=== PATIENT | female | born 1960 | race Caucasian/White ===

== ENCOUNTER 2017-09-11 10:08 | Emergency (ER) | payer OTHER ==
[~2017-09-11] VITALS: Ht 160 cm; Wt 78.0 kg
[~2017-09-11 10:08] MED LIST: ATOR40TA PO; Aspir 8181 MG; B Complete1 EACH PO; CAYENNE PO; CETI5; CHOL10002 PO; Crestor40 MG PO; DOXY100 PO; ESCI20 PO; Echinacea80 MG; GARLIC PO; LIPITOR; MAGCHL64ER; PANT20 PO; PLAVIX; PRAV20; PROTONIX; TOCO400; UBID10 PO; Vitamin C100 M1; [UNRECOGNIZED DRUG - OTHER] PO; [UNRECOGNIZED DRUG - OTHER] PO; [UNRECOGNIZED DRUG - OTHER] PO
[2017-09-11] MEDS ORDERED: LOSA50 PO (11:03)
[2017-09-11] MEDS ORDERED: Ranitidine HCl300 MG PO (11:03)
[2017-09-11] MEDS ORDERED: Pantoprazole So40 MG PO (11:04)
[2017-09-11] MEDS ORDERED: MONT10T PO (11:04)
[2017-09-11] MEDS ORDERED: VARE1 PO (11:04)
[2017-09-11] MEDS ORDERED: HYDCHL25 PO (11:05)
[2017-09-11] MEDS ORDERED: Norco 5-325 Ta1 EACH PO (11:25)
[2017-09-11] MEDS ORDERED: Amoxicillin875 MG PO (11:25)
== END 2017-09-11 11:38 | disposition home or self-care (01) ==
LOC: ER 10:08
DX: K04.7 Periapical abscess without sinus (principal); Z88.5 Allergy status to narcotic agent; Z88.8 Allergy status to other drugs, medicaments and biological substances; Z88.2 Allergy status to sulfonamides; Z91.010 Allergy to peanuts; Z79.82 Long term (current) use of aspirin; Z79.899 Other long term (current) drug therapy; E78.5 Hyperlipidemia, unspecified; Z86.73 Personal history of transient ischemic attack (TIA), and cerebral infarction without residual deficits; F17.210 Nicotine dependence, cigarettes, uncomplicated
CPT/HCPCS: 99283

== ENCOUNTER → 2019-03-05 | Outpatient (CLI) | payer OTHER ==
[~2019-03-05] MED LIST changes: +Amoxicillin875 MG PO; +HYDCHL25 PO; +LOSA50 PO; +MONT10T PO; +Norco 5-325 Ta1 EACH PO; +Pantoprazole So40 MG PO; +Ranitidine HCl300 MG PO; +VARE1 PO
== END ==
LOC: LAB SHORT 19:22 → LAB 19:22
PROVIDERS: Nurse Practitioner Family
DX: Z01.419 Encounter for gynecological examination (general) (routine) without abnormal findings (principal)
CPT/HCPCS: G0145

== ENCOUNTER → 2019-06-13 | Outpatient (CLI) | payer OTHER | END | disposition home or self-care (01) | LOC: LAB EV 16:51 → LAB SHORT 16:51 | DX: I73.9 Peripheral vascular disease, unspecified (principal) | CPT/HCPCS: 84484 ==

== ENCOUNTER 2019-10-18 08:27 | Day surgery (SDC) | payer OTHER ==
[~2019-10-18] VITALS: Ht 157.5 cm; Wt 89.3 kg
[2019-10-18] MEDS ORDERED: PLAVIX75 MG PO (09:00)
[2019-10-18] MEDS ORDERED: ASPI81CH PO (09:02)
[2019-10-18] MEDS ORDERED: Cymbalta20 MG PO (09:04)
--- NOTE | 2019-10-18 11:16 | NUR ---
10/18/19 1116 Colleen Renteria PT UP IN CHAIR AT 1107, O2 AT 88% ENCOURAGED TO TAKE DEEP BREATHS, O2 INCREASED TO 98% AND MAINTAING AT THAT RATE. TMG
== END 2019-10-18 12:40 | disposition home or self-care (01) ==
LOC: ORSCSDS 08:27
PROVIDERS: Orthopaedic Surgery
PROC: 0LBL0ZZ Excision of Right Upper Leg Tendon, Open Approach (ICD-10-PCS; principal; 2019-10-18 09:45)
PROC: 0YH Anatomical Regions, Lower Extremities, Insertion (ICD-10-PCS; principal; 2019-10-18 09:45)
DX: M67.853 Other specified disorders of tendon, right hip (principal); I10 Essential (primary) hypertension; E11.9 Type 2 diabetes mellitus without complications; K21.9 Gastro-esophageal reflux disease without esophagitis; J44.9 Chronic obstructive pulmonary disease, unspecified; Z87.891 Personal history of nicotine dependence; I25.10 Atherosclerotic heart disease of native coronary artery without angina pectoris; Z86.73 Personal history of transient ischemic attack (TIA), and cerebral infarction without residual deficits; E66.01 Morbid (severe) obesity due to excess calories; Z68.36 Body mass index [BMI] 36.0-36.9, adult; Z79.01 Long term (current) use of anticoagulants; Z79.84 Long term (current) use of oral hypoglycemic drugs; Z79.82 Long term (current) use of aspirin
CPT/HCPCS: 82947; A9270-GY; C1713; J0171; J0690; J1100; J1885; J2250; J2370; J2405; J2704; J2710; J2765; J3010; J7120

== ENCOUNTER 2020-01-29 18:33 | Emergency (ER) | payer OTHER ==
[~2020-01-29 18:33] MED LIST changes: +ASPI81CH PO; +Cymbalta20 MG PO; +PLAVIX75 MG PO
== END 2020-01-29 19:48 | disposition left against medical advice (07) ==
LOC: ER 18:33
DX: Z53.21 Procedure and treatment not carried out due to patient leaving prior to being seen by health care provider (principal)

== ENCOUNTER 2020-05-23 10:12 | Observation (INO) | payer OTHER ==
[~2020-05-23] VITALS: Ht 160 cm; Wt 84.2 kg
[~2020-05-23 10:12] MED LIST changes: -Crestor40 MG PO; -Cymbalta20 MG PO; -HYDCHL25 PO; -LOSA50 PO; -PLAVIX75 MG PO; -Pantoprazole So40 MG PO; -VARE1 PO
[2020-05-23 10:42] LABS: BASOPHILS ABSOLUTE AUTO 0.02 K/mm3 (0.00-0.23); BASOPHILS PERCENT AUTO 0 % (0-2); EOSINOPHILS ABSOLUTE AUTO 0.16 K/mm3 (0.00-0.68); EOSINOPHILS PERCENT AUTO 3 % (0-6); Hemoglobin 12.8 g/dL (11.5-16.0); IMMATURE GRAN ABSOLUTE AUTO 0.02 K/mm3 (0.00-0.10); IMMATURE GRAN PERCENT AUTO 0 % (0-1); LYMPHOCYTES ABSOLUTE AUTO 2.39 K/mm3 (0.84-5.20); LYMPHOCYTES PERCENT AUTO 38 % (21-46); MONOCYTES ABSOLUTE AUTO 0.47 K/mm3 (0.16-1.47); MONOCYTES PERCENT AUTO 7 % (4-13); Mean Corpuscular HGB 28.8 pg (26.0-34.0); Mean Corpuscular HGB Conc 32.8 g/dL (31.5-36.5); Mean Corpuscular Volume 88 fL (80-100); Mean Platelet Volume 11.2 fL (9.1-12.4); NEUTROPHILS ABSOLUTE AUTO 3.29 K/mm3 (1.96-9.15); NEUTROPHILS PERCENT AUTO 52 % (41-73); Platelet Count 232 K/mm3 (150-400); RDW Coefficient Variation 13.6 % (11.7-14.2); RDW Standard Deviation 43.8 fL (35.1-46.3); Red Blood Cell Count 4.45 M/mm3 (3.80-5.20); White Blood Cell Count 6.35 K/mm3 (4.00-11.30)
[2020-05-23 10:55] LABS: Alanine Aminotransfer (ALT/SGP 54 U/L (12-78); Albumin, Blood 3.7 g/dL (3.4-5.0); Alk Phos 124 U/L (50-136); Anion Gap 9 mmol/L (6-16); Aspartate Aminotrans (AST/SGOT 62 U/L (12-37); Bilirubin, Total 0.5 mg/dL (0.1-1.0); Blood Urea Nitrogen 17 mg/dL (8-24); Bun/Creatinine Ratio 25.8 (12.0-20.0); CO2, Blood 22 mmol/L (21-32); Calcium, Blood 9.2 mg/dL (8.5-10.1); Chloride, Blood 107 mmol/L (98-108); Creatinine, Blood 0.66 mg/dL (0.40-1.00); Globulin, Blood 3.7 g/dL (2.2-4.0); Glomerular Filtration Rate >60 (60-); Glucose, Blood 152 mg/dL (70-99); Potassium, Blood 3.5 mmol/L (3.5-5.5); Sodium, Blood 138 mmol/L (136-145); Total Protein, Blood 7.4 g/dL (6.4-8.2); Troponin I <0.015 ng/mL (0.000-0.040)
[2020-05-23 13:37] LABS: Source, Urine Voided
[2020-05-23 13:40] LABS: Appearance, Urine Clear (Clear); Bilirubin, Urine Neg (Neg); Blood, Urine Neg (Neg); Color, Urine Yellow (P-Yellow); Glucose Qualitative, Urine Neg (Neg); Ketones, Urine Neg (Neg); Leukocyte Esterase, Urine Neg (Neg); Nitrite, Urine Neg (Neg); Protein, Urine 1+ (Neg); Urobilinogen, Urine 1+ (Normal)
[2020-05-23] MEDS ORDERED: Chantix1 MG PO (14:36)
[2020-05-23] MEDS ORDERED: AMLO5 PO (14:37)
[2020-05-23] MEDS ORDERED: FAMO40 PO (14:38)
[2020-05-23] MEDS ORDERED: MONT10T PO (14:38)
[2020-05-23] MEDS ORDERED: HYDCHL25 PO (14:39)
[2020-05-23] MEDS ORDERED: Pantoprazole So40 MG PO (14:39)
[2020-05-23] MEDS ORDERED: METF500C PO (14:40)
[2020-05-23] MEDS ORDERED: Cymbalta20 MG PO (14:40)
[2020-05-23] MEDS ORDERED: Crestor40 MG PO (14:40)
[2020-05-23] MEDS ORDERED: LOSARTAN POTAS100 M1 PO (14:41)
[2020-05-23] MEDS ORDERED: PLAVIX75 MG PO (14:41)
[2020-05-23] MEDS ORDERED: ZYRTEC10 M2 PO (15:00)
[2020-05-23] MEDS ORDERED: MAGNESIUM OXIDE TAB PO (15:09)
--- NOTE | 2020-05-23 17:45 | NUR ---
PT ARRIVED TO UNIT FROM ER VIA [facility] TRASFERED SELF TO BED WITH NO WEAKENSS. PT CURRENTLY REPORTS NO PAIN AND NO NAUSEA. CLEAR LIQUID DIET PER ORDERS. PLAN IS FOR NPO AT MIDNIGHT FOR PROCEDURE TOMORROW. REPORTS PAIN LOCALIZED IN THE EPIGASTRIC AREA. CALL LIGHT IN REACH, PT EDUCATED ON USE. [id number] AT THIS TIME.
[2020-05-24 04:58] LABS: BASOPHILS ABSOLUTE AUTO 0.04 K/mm3 (0.00-0.23); BASOPHILS PERCENT AUTO 1 % (0-2); EOSINOPHILS ABSOLUTE AUTO 0.23 K/mm3 (0.00-0.68); EOSINOPHILS PERCENT AUTO 3 % (0-6); Hematocrit 38.5 % (33.0-51.0); Hemoglobin 12.3 g/dL (11.5-16.0); IMMATURE GRAN ABSOLUTE AUTO 0.01 K/mm3 (0.00-0.10); IMMATURE GRAN PERCENT AUTO 0 % (0-1); LYMPHOCYTES ABSOLUTE AUTO 1.65 K/mm3 (0.84-5.20); LYMPHOCYTES PERCENT AUTO 22 % (21-46); MONOCYTES PERCENT AUTO 9 % (4-13); Mean Corpuscular HGB Conc 31.9 g/dL (31.5-36.5); Mean Corpuscular Volume 88 fL (80-100); Mean Platelet Volume 11.2 fL (9.1-12.4); NEUTROPHILS ABSOLUTE AUTO 4.87 K/mm3 (1.96-9.15); NEUTROPHILS PERCENT AUTO 65 % (41-73); Platelet Count 222 K/mm3 (150-400); RDW Coefficient Variation 13.9 % (11.7-14.2)
--- NOTE | 2020-05-24 05:14 | NUR ---
SHIFT SUMMARY: JACE IS A&OX4. VSS, NO ACUTE EVENTS OVERNIGHT. DR. RICH CONTACTED REGARDING PLAVIX AND COVID SWAB. NO ORDER GIVEN AT THIS TIME FOR COVID SWAB D/T PATIENT HAVING TAKEN PLAVIX 05/22/20 AT BEDTIME WHICH SHE TAKES FOR THE HX OF BILATERAL ILIAC STENT PLACEMENT. PT IS INDEPENDENT IN THE ROOM. SHE DID REPORT SOME DIARRHEA WHICH SHE STATES HAS IMPROVED THIS MORNING. SHE WAS MADE NPO AT MIDNIGHT, BUT WAS TOLERATING CLEARS WELL UNTIL THAT TIME. SHE HAS DENIED THE NEED FOR PAIN MEDICATION. SHE USES HER CALL LIGHT APPROPRIATELY. SHE IS LYING IN BED WITH HER CALL LIGHT IN REACH. WILL REPORT TO DAY SHIFT RN.
[2020-05-24 05:24] LABS: Alanine Aminotransfer (ALT/SGP 255 U/L (12-78); Albumin, Blood 3.4 g/dL (3.4-5.0); Alk Phos 136 U/L (50-136); Anion Gap 5 mmol/L (6-16); Aspartate Aminotrans (AST/SGOT 202 U/L (12-37); Bilirubin, Total 0.8 mg/dL (0.1-1.0); Blood Urea Nitrogen 11 mg/dL (8-24); Bun/Creatinine Ratio 18.2 (12.0-20.0); CO2, Blood 28 mmol/L (21-32); Calcium, Blood 8.9 mg/dL (8.5-10.1); Chloride, Blood 106 mmol/L (98-108); Creatinine, Blood 0.61 mg/dL (0.40-1.00); Globulin, Blood 3.4 g/dL (2.2-4.0); Glomerular Filtration Rate >60 (60-); Glucose, Blood 125 mg/dL (70-99); Magnesium, Blood 2.2 mg/dL (1.6-2.4); Potassium, Blood 4.1 mmol/L (3.5-5.5); Sodium, Blood 139 mmol/L (136-145); Total Protein, Blood 6.8 g/dL (6.4-8.2); Troponin I <0.015 ng/mL (0.000-0.040)
--- NOTE | 2020-05-24 14:35 | NUR ---
DISCHARGE PT LEFT VIA WHEELCHAIR WITH . DENIES PAIN AND NAUSEA ALL DAY. PLAN IS FOR PATIENT TO FOLLOW UP WITH DR RICH OUTPATIENT FOR ERIN. IV WAS REMOVED DISCHARGE INFORMATION GONE OVER WITH PATIENT SHE DENIES ANY FURTHER NEEDS AT THSI TIME. ALL BELONGINGS SENT WITH PT.
[2020-08-11] MEDS ORDERED: THERA-D2000 UNIT PO (14:26)
[2020-08-11] MEDS ORDERED: Aspir 8181 MG PO (14:26)
[2020-08-11] MEDS ORDERED: COENZYME Q10100 MG PO (14:27)
== END 2020-05-24 14:08 | disposition home or self-care (01) ==
LOC: ER 10:12 → ERHOLD 10:13 → SURS 14:44 → ERHOLD 14:44 → ER 14:44 → SURS 16:49 → ERHOLD 16:49 → ER 05-24 10:13 → SURS 05-24 10:13 → ERHOLD 05-24 10:13 → SURS 05-24 13:37
PROVIDERS: Emergency Medicine; ADMIT Internal Medicine Gastroenterology
DX: K80.20 Calculus of gallbladder without cholecystitis without obstruction (principal); R07.9 Chest pain, unspecified; J43.9 Emphysema, unspecified; I10 Essential (primary) hypertension; E78.5 Hyperlipidemia, unspecified; F32.9 Major depressive disorder, single episode, unspecified; E11.9 Type 2 diabetes mellitus without complications; K21.9 Gastro-esophageal reflux disease without esophagitis; I73.9 Peripheral vascular disease, unspecified; J45.909 Unspecified asthma, uncomplicated; Z88.5 Allergy status to narcotic agent; Z88.2 Allergy status to sulfonamides; Z88.1 Allergy status to other antibiotic agents; Z91.010 Allergy to peanuts; Z87.891 Personal history of nicotine dependence
CPT/HCPCS: 36415; 71045; 71260; 76705; 80053; 82947; 83690; 83735; 83880; 84484; 85025; 85379; 93005; 93010; 94760; 99285-25; A9270; Q9967

== ENCOUNTER 2020-06-02 07:21 | Day surgery (SDC) | payer OTHER ==
[~2020-06-02] VITALS: Ht 160 cm; Wt 84.9 kg
[~2020-06-02 07:21] MED LIST changes: +AMLO5 PO; +Chantix1 MG PO; +Crestor40 MG PO; +Cymbalta20 MG PO; +FAMO40 PO; +HYDCHL25 PO; +LOSARTAN POTAS100 M1 PO; +MAGNESIUM OXIDE TAB PO; +METF500C PO; +PLAVIX75 MG PO; +Pantoprazole So40 MG PO; +ZYRTEC10 M2 PO
--- NOTE | 2020-06-02 08:32 | NUR ---
IV ACCESS X2 ATTEMPTS NANCY SANDHU, IV ACCESS X2 1 UNSUCCESSUL AND 1 SUCCESSFUL. Ambulatory in Day Surgery History, Chart, Medications and Allergies reviewed before start of procedure.Patient confirms NPO status and agrees with scheduled surgery. Patient reports completing Chlorhexadine shower X2 prior to admission to hospital.Surgical site prepped with 2% Chlorhexidine cloth wipe. Lungs clear T/O to Auscultation. Patient States Post-Procedure ride home has been arranged WITH
--- NOTE | 2020-06-02 11:26 | NUR ---
REPORT FROM HEATH LOW RN. GAVE PT FOOD AND FLUIDS, MICHELLE WELL, GAVE ONE PAIN PILL. Dressing to procedure site clean, dry, intact with no visible drainage, swelling, erythema or bruising noted.
--- NOTE | 2020-06-02 12:21 | NUR ---
Patient up to Ambulate independently. Gait steady. PT WALKED TO BATHROOM. Discharge instructions reviewed with patient. Patient verbalizes understanding. Copy given to patient to take home. Dressing to procedure site clean, dry, intact with no visible drainage, swelling, erythema or bruising noted. Patient States Post-Procedure ride home has been arranged. Discharged via wheelchair to private car for ride home. ALL BELONGINGS RETURNED TO PATIENT. DR RICH AWARE THAT PT NEEDS PAIN MEDS. PT DOES NOT WANT TO WAIT FOR SCRIPT,BUT WILL SEND FAMILY BY TO CLINICAL UNIT COORDINATOR SCRIPT IF WRITTEN.
--- NOTE | 2020-06-02 12:47 | NUR ---
DR RICH WROTE SCRIPT FOR PATIENT PRIOR TO BEING DISCHARGED.
[2020-08-11] MEDS ORDERED: THERA-D2000 UNIT PO (14:26)
[2020-08-11] MEDS ORDERED: Aspir 8181 MG PO (14:26)
[2020-08-11] MEDS ORDERED: COENZYME Q10100 MG PO (14:27)
== END 2020-06-02 12:49 | disposition home or self-care (01) ==
LOC: ORSCMMR 07:21 → ORD 08:30 → ORSCMMR 12:49
PROVIDERS: Surgery
PROC: 0FT44ZZ Resection of Gallbladder, Percutaneous Endoscopic Approach (ICD-10-PCS; principal; 2020-06-02 08:30)
PROC: BF031ZZ Plain Radiography of Gallbladder and Bile Ducts using Low Osmolar Contrast (ICD-10-PCS; principal; 2020-06-02 08:30)
DX: K80.10 Calculus of gallbladder with chronic cholecystitis without obstruction (principal); I10 Essential (primary) hypertension; I25.10 Atherosclerotic heart disease of native coronary artery without angina pectoris; J44.9 Chronic obstructive pulmonary disease, unspecified; K21.9 Gastro-esophageal reflux disease without esophagitis; Z87.891 Personal history of nicotine dependence; E11.9 Type 2 diabetes mellitus without complications; Z86.73 Personal history of transient ischemic attack (TIA), and cerebral infarction without residual deficits; Z79.01 Long term (current) use of anticoagulants; Z79.899 Other long term (current) drug therapy
CPT/HCPCS: 74300; 82947; 88304; A9270; C1729; J0690; J1100; J1885; J2250; J2370; J2405; J2704; J2765; J3010; J7030; J7120

== ENCOUNTER 2020-08-12 08:50 | Day surgery (SDC) | payer OTHER ==
[~2020-08-12] VITALS: Ht 160 cm; Wt 86.2 kg
[~2020-08-12 08:50] MED LIST changes: +Aspir 8181 MG PO; +COENZYME Q10100 MG PO; +THERA-D2000 UNIT PO
[2020-08-12] MEDS ORDERED: MAGNESIUM OXID500 MG PO (09:24)
--- NOTE | 2020-08-12 12:40 | NUR ---
1210 PATIENT RETURNED FROM THE [facility]ATH[facility] WITH RIGHT GGROIN ANGIOSEAL WITH DRESSING IN PLACE. NO HEMATOMA, NO BLEEDING NOTED. PEDAL PULSES ASSESSED. MONITOR APPLIED AND CALL LIGHT IN REACH. VVS. C/O LOW BACK PAIN AND IMFORMED PATIENT SHE COULD BEND THE LEFT LEG TO RELEIVE THE LOW BACK PAIN. REPOSTIONED FOR COMFORT. CONTINUE TO MONITOR. LUNCH TRAY AT THE BEDSIDE BUT PATIENT STILL SLEEPY.
--- NOTE | 2020-08-12 14:10 | NUR ---
PT UP TO BATHROOM. GROIN AND PEDAL SITES BOTH STABLE. GETTING DRESSED AT THIS TIME.
--- NOTE | 2020-08-12 14:19 | NUR ---
DISCHARGE INSTRUCTIONS REVIEWED WITH PT, PT VERBALIZES UNDERSTANDING OF INSTRUCTIONS. SALINE LOCK REMOVED WITH CATHETER INTACT. GROIN AND PEDAL SITES STABLE. PT TO PRIVATE VEHICLE WITH DISCHARGE VOLUNTEER.
== END 2020-08-12 14:20 | disposition home or self-care (01) ==
LOC: MHTC 08:50
DX: E11.51 Type 2 diabetes mellitus with diabetic peripheral angiopathy without gangrene (principal); I70.213 Atherosclerosis of native arteries of extremities with intermittent claudication, bilateral legs; E11.69 Type 2 diabetes mellitus with other specified complication; I10 Essential (primary) hypertension; I65.23 Occlusion and stenosis of bilateral carotid arteries; E78.5 Hyperlipidemia, unspecified; J44.9 Chronic obstructive pulmonary disease, unspecified; Z87.891 Personal history of nicotine dependence; Z88.2 Allergy status to sulfonamides; Z88.8 Allergy status to other drugs, medicaments and biological substances; Z88.5 Allergy status to narcotic agent; Z91.010 Allergy to peanuts; Z79.84 Long term (current) use of oral hypoglycemic drugs
CPT/HCPCS: 37221; 37222; 37227; 75625; 75716; 76937; 99152; 99153; C1714; C1725; C1760; C1769; C1874; C1876; C1887; C1894; C2623; J1644; J2250; J3010; J7030; J7050; Q9967

== ENCOUNTER 2021-10-26 08:31 | Day surgery (SDC) | payer OTHER ==
[~2021-10-26] VITALS: Ht 157.5 cm; Wt 90.0 kg
[~2021-10-26 08:31] MED LIST changes: +MAGNESIUM OXID500 MG PO
--- NOTE | 2021-10-26 13:33 | NUR ---
PT RESTING COMFORTABLY. NADN. VSS. PT R FEMORAL SITE REMAINS CLEAR. NO BLEEDING OR HEMATOMA NOTED. VSS. CALL LIGHT WITHIN REACH.
--- NOTE | 2021-10-26 14:03 | NUR ---
PT AMBULATES TO RESTROOM AND BACK WITHOUT DIFF. R FEMORAL SITE REMAINS CLEAR AND STABLE. PT VERBALIZES UNDERSTANDING WRITTEN AND VERBAL INSTRCTIONS. DENIES QUESTIONS OR CONCERNS.
--- NOTE | 2021-10-26 14:13 | NUR ---
PT IV DC'D. CATH INTACT. PRESSURE DSG IN PLACE. NO BLEEDING OR HEMATOMA NOTED AT R FEMORAL SITE. VSS. NADN. PT DC TO HOME VIA WC BY S/O
== END 2021-10-26 14:10 | disposition home or self-care (01) ==
LOC: MHTC 08:31
DX: E11.51 Type 2 diabetes mellitus with diabetic peripheral angiopathy without gangrene (principal); I70.213 Atherosclerosis of native arteries of extremities with intermittent claudication, bilateral legs; J44.9 Chronic obstructive pulmonary disease, unspecified; I10 Essential (primary) hypertension; E78.5 Hyperlipidemia, unspecified; Z87.891 Personal history of nicotine dependence; Z88.5 Allergy status to narcotic agent; Z88.2 Allergy status to sulfonamides; Z79.82 Long term (current) use of aspirin; Z79.899 Other long term (current) drug therapy
CPT/HCPCS: 37220; 37227; 75625; 75716; 76937; 99152; 99153; C1714; C1725; C1760; C1769; C1874; C1887; C1894; C2623; J1200; J1644; J2250; J3010; J7030; J7040; Q9967

== ENCOUNTER → 2022-09-01 | Outpatient (CLI) | payer OTHER ==
[2022-09-02 15:08] LABS: HPV 16 Negative (Negative); HPV 18 Negative (Negative); HPV OTHER HR TYPES Negative (Negative)
== END | disposition home or self-care (01) ==
LOC: RAD SHORT 08:44 → LAB 08:44
PROVIDERS: Family Medicine
DX: Z01.419 Encounter for gynecological examination (general) (routine) without abnormal findings (principal)
CPT/HCPCS: 87624; G0145

== ENCOUNTER → 2022-09-01 | Outpatient (CLI) | payer OTHER | LOC: LAB SHORT 12:04 → PLD 12:04 | DX: D48.5 Neoplasm of uncertain behavior of skin (principal) | CPT/HCPCS: 88305 ==

== ENCOUNTER 2023-10-20 10:15 | Emergency (ER) | payer OTHER ==
[~2023-10-20] VITALS: Ht 160 cm; Wt 90.7 kg
[~2023-10-20 10:15] MED LIST changes: +ALBU90OI INH; +Adipex-P37.5 M1 PO; +FLUTICASONE PRO12 GM INH; +SPIRIVA RESPIMAT4 G3 INH
[2023-10-20 10:22] VITALS: BP 136/84
== END 2023-10-20 14:31 | disposition home or self-care (01) ==
LOC: ER 10:15
DX: T83.83XA Hemorrhage due to genitourinary prosthetic devices, implants and grafts, initial encounter (principal); E78.5 Hyperlipidemia, unspecified; Z87.891 Personal history of nicotine dependence; Z86.73 Personal history of transient ischemic attack (TIA), and cerebral infarction without residual deficits; Z79.82 Long term (current) use of aspirin; Z79.02 Long term (current) use of antithrombotics/antiplatelets; Z79.51 Long term (current) use of inhaled steroids; Z88.5 Allergy status to narcotic agent; Z88.1 Allergy status to other antibiotic agents; Z88.2 Allergy status to sulfonamides; Z91.010 Allergy to peanuts
CPT/HCPCS: 76770; 99284-25

== ENCOUNTER 2024-12-31 11:44 | Day surgery (SDC) | payer OTHER ==
[~2024-12-31] VITALS: Ht 160 cm; Wt 91.6 kg
[~2024-12-31 11:44] MED LIST changes: +NS 500 ML IV ONE
[2024-12-31] MEDS ORDERED: CeFAZolin Sodium 2,000 MG VIAL ONE (12:47)
[2024-12-31] MEDS ORDERED: PROP10 PO (13:20)
[2024-12-31] MEDS ORDERED: NS 500 ML IV ONE (13:43)
--- NOTE | 2024-12-31 13:46 | NUR ---
12/31/24 1346 Camille Ramires TIME OUT PERFORMED AT BEDSIDE AT [address] BRAXTON IMMEDIATELY PRIOR TO INJECTION OF 5ML OF SOLUTION CONSISTING OF 9ML 1% LIDOCAINE W/EPI [id number] AND 1ML 8.4% SODIUM BICARBONATE. PATIENT TOLERATED PROCEDURE WITHOUT ANY DIFFICULTIES.
--- NOTE | 2024-12-31 14:12 | NUR ---
12/31/24 1412 Basia Hatfield IN PRE-OP, PATIENT DEVELOPED A RASH ON THE RIGHT WRIST/HAND AREA. DR. BRAXTON WAS MADE AWARE AND OK'D TO PROCEDE. RASH WASH MARKED IN THE OR POST-OP.
[2024-12-31 14:23] VITALS: BP 165/92
== END 2024-12-31 15:00 | disposition home or self-care (01) ==
LOC: ORSCSDS 11:44
PROVIDERS: Orthopaedic Surgery
PROC: 0LN70ZZ Release Right Hand Tendon, Open Approach (ICD-10-PCS; principal; 2024-12-31 13:15)
DX: M65.331 Trigger finger, right middle finger (principal); J44.9 Chronic obstructive pulmonary disease, unspecified; K21.9 Gastro-esophageal reflux disease without esophagitis; I73.9 Peripheral vascular disease, unspecified; E66.9 Obesity, unspecified; Z68.35 Body mass index [BMI] 35.0-35.9, adult; Z79.82 Long term (current) use of aspirin; F17.210 Nicotine dependence, cigarettes, uncomplicated; Z79.899 Other long term (current) drug therapy
CPT/HCPCS: J0690; J7040